=== PATIENT | female | born 1940 | race Hispanic/Latino ===

== ENCOUNTER 2019-11-07 01:36 | Emergency (ER) | payer MEDICARE | END 2019-11-07 01:41 | disposition left against medical advice (07) | LOC: ED 01:36 | DX: R06.2 Wheezing (principal); Z53.21 Procedure and treatment not carried out due to patient leaving prior to being seen by health care provider ==

== ENCOUNTER 2019-11-21 12:32 | Observation (INO) | payer MEDICARE ==
[2019-11-21] MEDS ORDERED: ONDANSETRON 4 MG/2 ML INJ IV ONE (12:44)
[2019-11-21] MEDS ORDERED: ONDANSETRON 4 MG/2 ML INJ ONE (12:44)
[2019-11-21] MEDS ORDERED: IPRATROPIUM 0.02% NEBU 2.5 ML IH ONE (12:54)
[2019-11-21] MEDS ORDERED: ALBUTEROL 2.5 MG/3 ML NEBU IH ONE (12:54)
[2019-11-21] MEDS ORDERED: predniSONE 20 MG TAB PO ONE (12:54)
[2019-11-21] MEDS ORDERED: LIDOCAINE-MPF (1%) 10 MG/1 ML VIAL 5 ML INFILTRATI ONE (12:56)
[2019-11-21 14:12] LABS: Hemoglobin 10.8 gm/dl (10.1-14.3); Mean Corpuscular HGB Conc 33 % (30-34); Mean Corpuscular Volume 87 fl (79-97); Platelet Count 176 K/mm3 (140-440); Red Blood Count 3.79 M/mm3 (3.65-5.03); Red Cell Distribution Width 16.6 % (13.2-15.2)
[2019-11-21 14:21] LABS: INR 3.59 (0.87-1.13); Partial Thromboplastin Time 40.9 Sec. (24.2-36.6)
[2019-11-21 14:21] LABS: ABG Base Excess 0.9 mmol/L (-2.0-3.0); ABG HCO3 22.6 mmol/L (20.0-26.0); ABG PCO2 33.1 mm Hg; ABG PH 7.452 pH Units (7.350-7.450); ABG PO2 50.3 mm Hg (80.0-90.0)
[2019-11-21 14:22] LABS: ABG Oxygen Saturation 86.9 % (95.0-99.0)
[2019-11-21 14:24] LABS: ABG Methemoglobin 0.6 % (0.0-1.5)
[2019-11-21 14:39] LABS: BUN/Creatinine Ratio 33; Blood Urea Nitrogen 36 mg/dL (7-17); Calcium 9.1 mg/dL (8.4-10.2); Hemolysis Index 21
[2019-11-21 15:35] LABS: Basophils % (Manual) 0 % (0.0-1.8); Eosinophils % (Manual) 0 % (0.0-4.3); Platelet Estimate Consistent w Auto; Tear Drop Cells Few; Total Cells Counted 100
--- NOTE | 2019-11-21 15:51 | XRay Report ---
CHEST 1 VIEW 1450 INDICATION / CLINICAL INFORMATION: cough, sob. COMPARISON: 03/13/2009 FINDINGS: SUPPORT DEVICES: None HEART / MEDIASTINUM: Cardiac surgical drain are again seen. Heart size appears within normal limits. LUNGS / PLEURA: Mild scarring is seen in the left base. Mild basilar atelectatic changes are noted. P ulmonary vascularity appears within normal limits. No areas of consolidation are seen. No pneumothora x. ADDITIONAL FINDINGS: No significant additional findings. IMPRESSION: No significant acute abnormality Signer Name: Ishan Hernandez MD Signed: 11/21/2019 3:46 PM Workstation Name: [id number]
--- NOTE | 2019-11-21 15:56 | Vascular Lab Report ---
DUPLEX VENOUS DOPPLER RIGHT LOWER EXTREMITY INDICATION: right leg swelling, hx cancer TECHNIQUE: Duplex doppler imaging was performed through the veins of the right lower extremity using venous compression and other maneuvers. COMPARISON: None available. FINDINGS: Common Femoral vein: Negative. Superficial Femoral vein: Negative. Popliteal vein: Negative. Calf veins: Negative. Additional findings: None. IMPRESSION: No evidence of deep venous thrombosis. Signer Name: Ishan Hernandez MD Signed: 11/21/2019 3:52 PM Workstation Name: [id number]
[2019-11-21] MEDS ORDERED: WARFARIN NO DOSE TODAY PO ONE (17:00)
--- NOTE | 2019-11-21 17:14 | Nuclear Medicine Report ---
Clinical data Suspect pulmonary embolic disease TECHNICAL DATA: Inhaled administration followed by immediate static images of chest in multiple projections coordin ed with breathing instructions. Followed by immediate static images of chest in multiple projections post I.V. injection. 11.1 millicuries of 133 Xenon is administered by inhalation. Pulmonary wash-in, equilibrium, and washout phases are performed. Then, 5.1 millicuries of 99m Tc MAA is administered intravenously. FINDINGS: Exam is compared to chest imaging study same day The ventilation scan is normal without evidence of delayed washout. The perfusion scan demonstrates h omogeneous uptake without evidence of segmental or subsegmental defects. IMPRESSION: Normal lung scan. Signer Name: Ilir Muñoz MD Signed: 11/21/2019 5:10 PM Workstation Name: [id number]
--- NOTE | 2019-11-21 17:31 | Emergency Department Report ---
- General Chief Complaint: Nausea/Vomiting/Diarrhea Stated Complaint: NAUSEA/VOMITING Time Seen by Provider: 11/21/19 12:52 Source: patient, family, EMS Mode of arrival: Stretcher Limitations: No Limitations - History of Present Illness Initial Comments: Patient is a 79-year-old female with a history of CLL who is had a cough for approximately 1 month. Patient is having some pain with breathing over the last day. Patient also states that she has had some worsening s hortness of breath. Patient has had a chronic cough for a month and has been on 2 courses of prednisone as well as an unknown antibiotic. Patient states the cough was just nagging however there is now shortness of breath with the cough. Patient today started having some nausea vomiting and right leg pain. Patient has had right leg pain in the past however she has not had pain in quite some time. Patient is on warfarin but her oncologist suggested that she stop her warfarin use for the last 2 days. Patient's cough is worse when lying flat. - Related Data Home Medications Medication Instructions Recorded Confirmed Last Taken Albuterol Sulfate [Proair 90 mcg IH BID PRN 11/21/19 11/21/19 Unknown Digihaler] Loratadine [Claritin RAPDIS] 10 mg PO QDAY 11/21/19 11/21/19 11/21/19 Lovastatin [Altoprev] 20 mg PO QHS 11/21/19 11/21/19 11/21/19 Metoprolol Tartrate [Lopressor] 50 mg PO BID 11/21/19 11/21/19 11/21/19 Olmesartan/Hydrochlorothiazide 1 each PO QDAY 11/21/19 11/21/19 11/21/19 [Olmesartan-Hctz 20-12.5 mg Tab] Pantoprazole Sodium [Protonix] 40 mg PO QDAY 11/21/19 11/21/19 11/21/19 Warfarin [Coumadin] 2.5 mg PO QDAY 11/21/19 11/21/19 11/21/19 Allergies Allergy/AdvReac Type Severity Reaction Status Date / Time No Known Allergies Allergy Unverified 07/23/14 10:25 ED Review of Systems ROS: Stated complaint: NAUSEA/VOMITING Other details as noted in HPI Comment: All other systems reviewed and negative ED Past Medical Hx - Past Medical History Previous Medical History?: Yes - Social History Smoking Status: Never Smoker - Medications Home Medications: Home Medications Medication Instructions Recorded Confirmed Last Taken Type Albuterol Sulfate [Proair 90 mcg IH BID PRN 11/21/19 11/21/19 Unknown History Digihaler] Loratadine [Claritin RAPDIS] 10 mg PO QDAY 11/21/19 11/21/19 11/21/19 History Lovastatin [Altoprev] 20 mg PO QHS 11/21/19 11/21/19 11/21/19 History Metoprolol Tartrate [Lopressor] 50 mg PO BID 11/21/19 11/21/19 11/21/19 History Olmesartan/Hydrochlorothiazide 1 each PO QDAY 11/21/19 11/21/19 11/21/19 History [Olmesartan-Hctz 20-12.5 mg Tab] Pantoprazole Sodium [Protonix] 40 mg PO QDAY 11/21/19 11/21/19 11/21/19 History Warfarin [Coumadin] 2.5 mg PO QDAY 11/21/19 11/21/19 11/21/19 History ED Physical Exam - General Limitations: No Limitations General appearance: alert, in no apparent distress - Head Head exam: Present: atraumatic, normocephalic - Eye Eye exam: Present: normal appearance, PERRL, EOMI - ENT ENT exam: Present: mucous membranes moist - Neck Neck exam: Present: normal inspection - Respiratory Respiratory exam: Present: respiratory distress, wheezes. Absent: normal lung sounds bilaterally, rales, rhonchi - Cardiovascular Cardiovascular Exam: Present: regular rate, normal rhythm, normal heart sounds. Absent: systolic murmur, diastolic murmur, rubs, gallop - GI/Abdominal GI/Abdominal exam: Present: soft, normal bowel sounds. Absent: distended, tenderness, guarding, rebound - Extremities Exam Extremities exam: Present: normal inspection, calf tenderness (right sided) - Back Exam Back exam: Present: normal inspection - Neurological Exam Neurological exam: Present: alert, oriented X3 - Psychiatric Psychiatric exam: Present: normal affect, normal mood - Skin Skin exam: Present: warm, dry, intact, normal color. Absent: rash ED Course Vital Signs 11/21/19 11/21/19 11/21/19 12:48 13:00 13:26 Temperature 100.9 F H Pulse Rate 99 H 92 H Pulse Rate [ 102 H Anterior Bilateral Throughout] Respiratory 27 H 26 H Rate Respiratory 25 H Rate [Anterior Bilateral Throughout] Blood Pressure 126/48 Blood Pressure 133/58 [Left] O2 Sat by Pulse 96 91 Oximetry 11/21/19 11/21/19 11/21/19 13:30 13:45 14:00 Temperature Pulse Rate 96 H 102 H 107 H Pulse Rate [ Anterior Bilateral Throughout] Respiratory 26 H 25 H 27 H Rate Respiratory Rate [Anterior Bilateral Throughout] Blood Pressure 121/43 113/51 117/51 Blood Pressure [Left] O2 Sat by Pulse 98 100 100 Oximetry 11/21/19 11/21/19 11/21/19 14:15 14:30 14:45 Temperature Pulse Rate 121 H 111 H 112 H Pulse Rate [ Anterior Bilateral Throughout] Respiratory 25 H 27 H 28 H Rate Respiratory Rate [Anterior Bilateral Throughout] Blood Pressure 111/44 108/43 102/43 Blood Pressure [Left] O2 Sat by Pulse 100 99 94 Oximetry 11/21/19 11/21/19 15:45 17:31 Temperature Pulse Rate 97 H 93 H Pulse Rate [ Anterior Bilateral Throughout] Respiratory 29 H 16 Rate Respiratory Rate [Anterior Bilateral Throughout] Blood Pressure 103/39 Blood Pressure 105/45 [Left] O2 Sat by Pulse 92 95 Oximetry ED Medical Decision Making - Lab Data Result diagrams: 11/21/19 13:35 11/21/19 13:35 Lab Results 11/21/19 11/21/19 11/21/19 Range/Units 13:29 13:35 13:35 WBC 38.6 H (4.5-11.0) K/mm3 RBC 3.79 (3.65-5.03) M/mm3 Hgb 10.8 (10.1-14.3) gm/dl Hct 33.0 (30.3-42.9) % MCV 87 (79-97) fl MCH 29 (28-32) pg MCHC 33 (30-34) % RDW 16.6 H (13.2-15.2) % Plt Count 176 (140-440) K/mm3 Lymph % (Auto) Manager Collection Lymph # Manager Collection Add Manual Diff Complete Total Counted 100 Seg Neutrophils % Manager Collection Seg Neuts % (Manual) 2.0 L (40.0-70.0) % Band Neutrophils % 0 % Lymphocytes % (Manual) 86.0 H (13.4-35.0) % Reactive Lymphs % (Man) 10.0 % Monocytes % (Manual) 2.0 (0.0-7.3) % Eosinophils % (Manual) 0 (0.0-4.3) % Basophils % (Manual) 0 (0.0-1.8) % Metamyelocytes % 0 % Myelocytes % 0 % Promyelocytes % 0 % Blast Cells % 0 % Nucleated RBC % Not Reportable Seg Neutrophils # Man 0.8 L (1.8-7.7) K/mm3 Band Neutrophils # 0.0 K/mm3 Lymphocytes # (Manual) 33.2 H (1.2-5.4) K/mm3 Abs React Lymphs (Man) 3.9 K/mm3 Monocytes # (Manual) 0.8 (0.0-0.8) K/mm3 Eosinophils # (Manual) 0.0 (0.0-0.4) K/mm3 Basophils # (Manual) 0.0 (0.0-0.1) K/mm3 Metamyelocytes # 0.0 K/mm3 Myelocytes # 0.0 K/mm3 Promyelocytes # 0.0 K/mm3 Blast Cells # 0.0 K/mm3 Hypersegmented Neuts Not Reportable Hyposegmented Neuts Not Reportable Hypogranular Neuts Not Reportable Smudge Cells Not Reportable Toxic Granulation Not Reportable Toxic Vacuolation Not Reportable Dohle Bodies Not Reportable Pelger-Huet Anomaly Not Reportable [place] Rods Not Reportable Platelet Estimate Consistent w auto Clumped Platelets Not Reportable Plt Clumps, EDTA Not Reportable Large Platelets Not Reportable Giant Platelets Not Reportable Platelet Satelliting Not Reportable Plt Morphology Comment Not Reportable RBC Morphology Not Reportable Dimorphic RBCs Not Reportable Polychromasia Not Reportable Hypochromasia Not Reportable Poikilocytosis Not Reportable Anisocytosis Not Reportable Microcytosis Not Reportable Macrocytosis Not Reportable Spherocytes Not Reportable Pappenheimer Bodies Not Reportable Sickle Cells Not Reportable Target Cells Not Reportable Tear Drop Cells Few Ovalocytes Not Reportable Helmet Cells Not Reportable Martinez-Rancho Mirage Bodies Not Reportable [place] Rings Not Reportable [place] Cells Not Reportable Bite Cells Not Reportable Crenated Cell Not Reportable Elliptocytes Few Acanthocytes (Spur) Not Reportable Rouleaux Not Reportable Hemoglobin C Crystals Not Reportable Schistocytes Not Reportable Malaria parasites Not Reportable [place] Bodies Not Reportable Hem Pathologist Commnt Sent to pathology PT (12.2-14.9) Sec. INR (0.87-1.13) APTT (24.2-36.6) Sec. ABG pH 7.452 H (7.350-7.450) pH Units ABG pCO2 33.1 mm Hg ABG pO2 50.3 L (80.0-90.0) mm Hg ABG HCO3 22.6 (20.0-26.0) mmol/L ABG O2 Saturation 86.9 L (95.0-99.0) % ABG Base Excess 0.9 (-2.0-3.0) mmol/L ABG Hemoglobin 10.6 L (12.0-16.0) gm/dl ABG Carboxyhemoglobin 1.4 (0.0-5.0) % ABG Methemoglobin 0.6 (0.0-1.5) % Oxyhemoglobin 85.1 L (95.0-99.0) % Sodium 142 (137-145) mmol/L Potassium 4.8 (3.6-5.0) mmol/L Chloride 105.3 (98-107) mmol/L Carbon Dioxide 21 L (22-30) mmol/L Anion Gap 21 mmol/L BUN 36 H (7-17) mg/dL Creatinine 1.1 (0.7-1.2) mg/dL Estimated GFR 48 ml/min BUN/Creatinine Ratio 33 % Glucose 119 H (65-100) mg/dL Calcium 9.1 (8.4-10.2) mg/dL Troponin T < 0.010 (0.00-0.029) ng/mL 11/21/19 Range/Units 13:35 WBC (4.5-11.0) K/mm3 RBC (3.65-5.03) M/mm3 Hgb (10.1-14.3) gm/dl Hct (30.3-42.9) % MCV (79-97) fl MCH (28-32) pg MCHC (30-34) % RDW (13.2-15.2) % Plt Count (140-440) K/mm3 Lymph % (Auto) Lymph # Add Manual Diff Total Counted Seg Neutrophils % Seg Neuts % (Manual) (40.0-70.0) % Band Neutrophils % % Lymphocytes % (Manual) (13.4-35.0) % Reactive Lymphs % (Man) % Monocytes % (Manual) (0.0-7.3) % Eosinophils % (Manual) (0.0-4.3) % Basophils % (Manual) (0.0-1.8) % Metamyelocytes % % Myelocytes % % Promyelocytes % % Blast Cells % % Nucleated RBC % Seg Neutrophils # Man (1.8-7.7) K/mm3 Band Neutrophils # K/mm3 Lymphocytes # (Manual) (1.2-5.4) K/mm3 Abs React Lymphs (Man) K/mm3 Monocytes # (Manual) (0.0-0.8) K/mm3 Eosinophils # (Manual) (0.0-0.4) K/mm3 Basophils # (Manual) (0.0-0.1) K/mm3 Metamyelocytes # K/mm3 Myelocytes # K/mm3 Promyelocytes # K/mm3 Blast Cells # K/mm3 Hypersegmented Neuts Hyposegmented Neuts Hypogranular Neuts Smudge Cells Toxic Granulation Toxic Vacuolation Dohle Bodies Pelger-Huet Anomaly [place] Rods Platelet Estimate Clumped Platelets Plt Clumps, EDTA Large Platelets Giant Platelets Platelet Satelliting Plt Morphology Comment RBC Morphology Dimorphic RBCs Polychromasia Hypochromasia Poikilocytosis Anisocytosis Microcytosis Macrocytosis Spherocytes Pappenheimer Bodies Sickle Cells Target Cells Tear Drop Cells Ovalocytes Helmet Cells Martinez-Rancho Mirage Bodies [place] Rings [place] Cells Bite Cells Crenated Cell Elliptocytes Acanthocytes (Spur) Rouleaux Hemoglobin C Crystals Schistocytes Malaria parasites Carrington Bodies Hem Pathologist Commnt PT 36.7 H (12.2-14.9) Sec. INR 3.59 H (0.87-1.13) APTT 40.9 H (24.2-36.6) Sec. ABG pH (7.350-7.450) pH Units ABG pCO2 mm Hg ABG pO2 (80.0-90.0) mm Hg ABG HCO3 (20.0-26.0) mmol/L ABG O2 Saturation (95.0-99.0) % ABG Base Excess (-2.0-3.0) mmol/L ABG Hemoglobin (12.0-16.0) gm/dl ABG Carboxyhemoglobin (0.0-5.0) % ABG Methemoglobin (0.0-1.5) % Oxyhemoglobin (95.0-99.0) % Sodium (137-145) mmol/L Potassium (3.6-5.0) mmol/L Chloride (98-107) mmol/L Carbon Dioxide (22-30) mmol/L Anion Gap mmol/L BUN (7-17) mg/dL Creatinine (0.7-1.2) mg/dL Estimated GFR ml/min BUN/Creatinine Ratio % Glucose (65-100) mg/dL Calcium (8.4-10.2) mg/dL Troponin T (0.00-0.029) ng/mL - EKG Data -: EKG Interpreted by [facility] EKG shows normal: sinus rhythm, axis, intervals, QRS complexes, ST-T waves Rate: tachycardia - EKG Data 11/21/19 17:47 RBBB - Radiology Data Ordering Physician: SABINE MCKEON MD Date of Service: 11/21/19 Procedure(s): XR chest 1V ap Accession Number(s): [id number] cc: SABINE MCKEON MD Fluoro Time In Minutes: CHEST 1 VIEW 1450 INDICATION / CLINICAL INFORMATION: cough, sob. COMPARISON: 03/13/2009 FINDINGS: SUPPORT DEVICES: None HEART / MEDIASTINUM: Cardiac surgical drain are again seen. Heart size appears within normal limits. LUNGS / PLEURA: Mild scarring is seen in the left base. Mild basilar atelectatic changes are noted. Pulmonary vascularity appears within normal limits. No areas of consolidation are seen. No pneumothorax. ADDITIONAL FINDINGS: No significant additional findings. IMPRESSION: No significant acute abnormality Signer Name: Ishan Hernandez MD Signed: 11/21/2019 3:46 PM Workstation Name: [id number] Ordering Physician: SABINE MCKEON MD Date of Service: 11/21/19 Procedure(s): NM lung scan perf/vent Accession Number(s): [id number] cc: SABINE MCKEON MD Clinical data Suspect pulmonary embolic disease TECHNICAL DATA: Inhaled administration followed by immediate static images of chest in multiple projections coordinated with breathing instructions. Followed by immediate static images of chest in multiple projections post I.V. injection. 11.1 millicuries of 133 Xenon is administered by inhalation. Pulmonary wash-in, equilibrium, and washout phases are performed. Then, 5.1 millicuries of 99m Tc MAA is administered intravenously. FINDINGS: Exam is compared to chest imaging study same day The ventilation scan is normal without evidence of delayed washout. The perfusion scan demonstrates homogeneous uptake without evidence of segmental or subsegmental defects. IMPRESSION: Normal lung scan. Signer Name: Ilir Muñoz MD Signed: 11/21/2019 5:10 PM Workstation Name: [id number] DUPLEX VENOUS DOPPLER RIGHT LOWER EXTREMITY INDICATION: right leg swelling, hx cancer TECHNIQUE: Duplex doppler imaging was performed through the veins of the right lower extremity using venous compression and other maneuvers. COMPARISON: None available. FINDINGS: Common Femoral vein: Negative. Superficial Femoral vein: Negative. Popliteal vein: Negative. Calf veins: Negative. Additional findings: None. IMPRESSION: No evidence of deep venous thrombosis. Signer Name: Ishan Hernandez MD Signed: 11/21/2019 3:52 PM Workstation Name: [id number] Transcribed By: SERGIO Dictated By: Ishan Hernandez MD Electronically Authenticated By: Ishan Hernandez MD Signed Date/Time: 11/21/19 3532 - Medical Decision Making Patient is 79-year-old female with past medical history of chronic lymphocytic leukemia who is presenting with a cough for 1 month however she has had increased shortness of breath and pain with her cough for the last day. Chest x-ray is negative for obvious infiltrate. Patient has leg pain and there is great concern for pulmonary embolus. VQ scan is within normal limits. Ultrasound of the patient's lower extremity shows no acute DVT. Patient is Coumadin level is supratherapeutic. Patient did spike a fever here in emergency department. Patient is blood pressure dropped to 95 systolic. Patient's lungs did clear after neb treatment and her hypoxia did improve slightly to approximately 93%. Patient to be admitted to the hospitalist service. Antibiotics will be initiated. Although the x-ray did not show pneumonia with the fever being present in the increased shortness of breath and pain with br eathing and infiltrate may. After hydration. Blood cultures have been drawn as well. Patient's white count is at her baseline according to her daughter who is well versed in her medical care. Critical care attestation.: If time is entered above; I have spent that time in minutes in the direct care of this critically ill patient, excluding procedure time. ED Disposition Clinical Impression: Acute bronchitis, Acute respiratory distress, CLL (chronic lymphocytic leukemia) Disposition: OP ADMIT IP TO THIS HOSP Is pt being admited?: Yes Does the pt Need Aspirin: No Condition: Stable Instructions: Acute Bronchitis (ED) Referrals: PRIMARY CARE, [Primary Care Provider] - 3-5 Days Time of Disposition: 17:52
[2019-11-21] MEDS ORDERED: SODIUM CHLORIDE 0.9% 1000 ML IV SOLN IV ONE (17:38)
[2019-11-21] MEDS ORDERED: ACETAMINOPHEN 325 MG TAB PO ONE (17:51)
--- NOTE | 2019-11-21 18:01 | History and Physical Report ---
History of Present Illness Chief complaint: I just cannot stop coughing History of present illness: 79 YO Female with CLL presents to ED for evaluation. Pt states that she has experienced nonproductive cough over the past 1 month with persistent symptoms over the same timeframe. With worsening symptoms over the past 2 days. Patient states that she now experiences chest wall discomfort associated with the coughing episodes. Patient also acknowledges progressive weakness due to lack of oral intake. Patient is currently bedbound and requires 4/6 assistance with activities of daily living. EMS notified and upon arrival the patient was found to be in distress. The patient was transported to [facility] for further evaluation and care. Patient seen and evaluated in the emergency department. Lab and imaging studies reviewed. The patient was found to have symptoms consistent with acute bronchitis. Patient placed in observation status and admitted to [facility] unit for care and further evaluation due to increased risk of decompensation. Patient treated with empiric antibiotic therapy as well as IV steroid therapy. No prior admission for review. All listed medication reconciled at time of admission. Patient denies fever, chills, chest pain, palpitations, productive cough, hemoptysis, bright red blood per rectum, unilateral leg swelling, calf pain, prolonged travel/immobility immobility, individual/family history of DVT/PE/bleeding/blood clotting disorders. Past History Past Medical History: cancer Past Surgical History: No surgical history, Other (Reviewed) Social history: . denies: smoking, alcohol abuse, prescription drug abuse Family history: no significant family history, other (Reviewed) Medications and Allergies Allergies Allergy/AdvReac Type Severity Reaction Status Date / Time codeine Allergy Unknown Verified 11/21/19 18:38 Home Medications Medication Instructions Recorded Confirmed Last Taken Type Albuterol Sulfate [Proair 90 mcg IH BID PRN 11/21/19 11/21/19 Unknown History Digihaler] Loratadine [Claritin RAPDIS] 10 mg PO QDAY 11/21/19 11/21/19 11/21/19 History Lovastatin [Altoprev] 20 mg PO QHS 11/21/19 11/21/19 11/21/19 History Metoprolol Tartrate [Lopressor] 50 mg PO BID 11/21/19 11/21/19 11/21/19 History Olmesartan/Hydrochlorothiazide 1 each PO QDAY 02/22/20 02/22/20 02/22/20 History [Olmesartan-Hctz 20-12.5 mg Tab] Pantoprazole Sodium [Protonix] 40 mg PO QDAY 11/21/19 11/21/19 11/21/19 History Warfarin [Coumadin] 2.5 mg PO QDAY 11/21/19 11/21/19 11/21/19 History Active Meds: Active Medications Levofloxacin/Dextrose (Levaquin 500mg/100ml) 500 mg in 100 mls @ 100 mls/hr IV ONCE ONE; Protocol Stop: 11/21/19 18:38 Review of Systems Constitutional: weakness, no weight loss, no weight gain, no fever, no chills Ears, nose, mouth and throat: no ear pain, no ear discharge, no tinnitis, no decreased hearing, no nose pain, no nasal congestion Breasts: no change in shape, no swelling, no mass Cardiovascular: no chest pain, no orthopnea, no palpitations, no rapid/irregular heart beat, no edema Respiratory: cough, congestion Gastrointestinal: no nausea, no vomiting, no diarrhea, no constipation Genitourinary Female: no pelvic pain, no flank pain, no menorrhagia, no dysuria Rectal: no pain, no incontinence, no bleeding Integumentary: no rash, no redness Neurological: no transient paralysis, no weakness, no parathesias, no tingling, no seizures Psychiatric: no anxiety, no change in sleep habits, no sleep disturbances Endocrine: no cold intolerance, no polydipsia, no polyuria, no nocturia Hematologic/Lymphatic: no easy bruising, no easy bleeding Allergic/Immunologic: no urticaria Exam - Constitutional Vitals: Temp Pulse Resp BP Pulse Ox 100.7 F H 96 H 16 105/45 95 11/21/19 17:46 11/21/19 17:46 11/21/19 17:31 11/21/19 17:31 11/21/19 17:31 General appearance: Present: mild distress - EENT Eyes: Present: PERRL ENT: hearing intact, clear oral mucosa - Neck Neck: Present: supple, normal ROM - Respiratory Respiratory effort: normal Respiratory: bilateral: CTA - Cardiovascular Heart Sounds: Present: S1 & S2. Absent: rub, click - Extremities Extremities: pulses symmetrical, No edema Peripheral Pulses: within normal limits - Abdominal General gastrointestinal: Present: soft, non-tender, non-distended, normal bowel sounds Female genitourinary: Present: normal - Integumentary Integumentary: Present: clear, warm, dry - Musculoskeletal Musculoskeletal: gait normal, strength equal bilaterally - Psychiatric Psychiatric: appropriate mood/affect, intact judgment & insight - Neurologic Neurologic: CNII-XII intact, moves all extremities Results - Labs CBC & Chem 7: 11/21/19 13:35 11/21/19 13:35 Labs: Abnormal lab results 11/21/19 11/21/19 11/21/19 Range/Units 13:29 13:35 13:35 WBC 38.6 H (4.5-11.0) K/mm3 RDW 16.6 H (13.2-15.2) % Seg Neuts % (Manual) 2.0 L (40.0-70.0) % Lymphocytes % (Manual) 86.0 H (13.4-35.0) % Seg Neutrophils # Man 0.8 L (1.8-7.7) K/mm3 Lymphocytes # (Manual) 33.2 H (1.2-5.4) K/mm3 PT (12.2-14.9) Sec. INR (0.87-1.13) APTT (24.2-36.6) Sec. ABG pH 7.452 H (7.350-7.450) pH Units ABG pO2 50.3 L (80.0-90.0) mm Hg ABG O2 Saturation 86.9 L (95.0-99.0) % ABG Hemoglobin 10.6 L (12.0-16.0) gm/dl Oxyhemoglobin 85.1 L (95.0-99.0) % Carbon Dioxide 21 L (22-30) mmol/L BUN 36 H (7-17) mg/dL Glucose 119 H (65-100) mg/dL 11/21/19 Range/Units 13:35 WBC (4.5-11.0) K/mm3 RDW (13.2-15.2) % Seg Neuts % (Manual) (40.0-70.0) % Lymphocytes % (Manual) (13.4-35.0) % Seg Neutrophils # Man (1.8-7.7) K/mm3 Lymphocytes # (Manual) (1.2-5.4) K/mm3 PT 36.7 H (12.2-14.9) Sec. INR 3.59 H (0.87-1.13) APTT 40.9 H (24.2-36.6) Sec. ABG pH (7.350-7.450) pH Units ABG pO2 (80.0-90.0) mm Hg ABG O2 Saturation (95.0-99.0) % ABG Hemoglobin (12.0-16.0) gm/dl Oxyhemoglobin (95.0-99.0) % Carbon Dioxide (22-30) mmol/L BUN (7-17) mg/dL Glucose (65-100) mg/dL Assessment and Plan - Patient Problems (1) Acute bronchitis Current Visit: Yes Status: Acute Plan to address problem: Empiric IV antibiotic therapy, IV steroid therapy, nebulizer therapy, pulse oximetry, supportive care, Hydromet every 6 hours as needed for cough, chest x- ray, influenza a and B antigen. (2) CLL (chronic lymphocytic leukemia) Current Visit: Yes Status: Acute Plan to address problem: Supportive care, outpatient oncology follow-up. No evidence of blast crisis at this time. Continue anticoagulation as per oncology service. (3) Advance care planning Current Visit: Yes Status: Acute Plan to address problem: Patient is full code, disease education conducted, patient family as well as the patient acknowledged understanding and agreement with care plan, +30 minutes. (4) DVT prophylaxis Current Visit: Yes Status: Acute Plan to address problem: SCD to bilateral lower extremities while in bed. Continue prehospital anticoagulation.
[2019-11-21] MEDS ORDERED: ACETAMINOPHEN 325 MG TAB PO PRN (18:37)
[2019-11-21] MEDS ORDERED: ALBUTEROL 2.5 MG/3 ML NEBU IH PRN (18:37)
[2019-11-21] MEDS ORDERED: ONDANSETRON 4 MG/2 ML INJ IV PRN (18:37)
[2019-11-21] MEDS: CETIRIZINE 10 MG TAB PO SCH (21:24)
[2019-11-22] MEDS: HYDROcodone/HOMATROPINE 5-1.5MG /5 ML ORAL LIQD UNIT DOSE PO PRN ×2 (01:59→10:30)
[2019-11-22 05:09] LABS: Hematocrit 27.6 % (30.3-42.9); Mean Corpuscular HGB Conc 33 % (30-34); Mean Corpuscular Volume 86 fl (79-97); Platelet Count 131 K/mm3 (140-440); Red Blood Count 3.19 M/mm3 (3.65-5.03); Red Cell Distribution Width 16.1 % (13.2-15.2)
[2019-11-22 05:21] LABS: INR 4.72 (0.87-1.13)
[2019-11-22 06:00] LABS: Basophils % (Manual) 0 % (0.0-1.8); Eosinophils % (Manual) 0 % (0.0-4.3); Total Cells Counted 100
[2019-11-22 06:01] LABS: Platelet Estimate Consistent w Auto; Tear Drop Cells Rare
[2019-11-22] MEDS: PANTOPRAZOLE 40 MG TAB PO SCH ×2 (08:12→10:28)
[2019-11-22] MEDS ORDERED: NON-FORMULARY EACH (Olmesartan/Hydrochlorothiazide [Olmesartan-Hctz 20-12.5 Mg Tab] 1 EACH PO SCH (10:00)
[2019-11-22] MEDS ORDERED: hydroCHLOROthiazide 12.5 MG CAP PO SCH (10:00)
[2019-11-22] MEDS ORDERED: methylPREDNISolone Sod Succinate 40 MG/1 ML INJ IV SCH (10:00)
[2019-11-22] MEDS ORDERED: WARFARIN 5 MG TAB PO SCH (10:00)
[2019-11-22] MEDS ORDERED: LOSARTAN 50 MG TAB PO SCH (10:00)
[2019-11-22] MEDS: CETIRIZINE 10 MG TAB PO SCH (10:27)
--- NOTE | 2019-11-22 15:10 | Progress Note ---
Assessment and Plan / Acute bronchitis Empiric IV antibiotic therapy, nebulizer therapy, ordered influenza a and B antigen. /CLL (chronic lymphocytic leukemia) Supportive care, outpatient oncology follow-up. No evidence of blast crisis at this time. /Hypotension Hold BP meds, place iv fluid, /Physical debility, PT consulted /Supratherapeutic INR, hold coumadin /Advance care planning Patient is full code, disease education conducted, patient family as well as the patient acknowledged understanding and agreement with care plan / DVT prophylaxis SCD to bilateral lower extremities while in bed. Continue prehospital anticoagulation. Disposition: BP appears to be low, cont iv fluid, follow PT eval Subjective Date of service: 11/22/19 Interval history: Patient seen and examined BP appears to be low, appears very tired and low energy with minor physical activity patient states cough has improved but still has tightness Updated family at bedside Objective - Constitutional Vitals: Vital Signs - 12hr 11/22/19 11/22/19 11/22/19 07:19 08:25 09:00 Temperature 98.6 F Pulse Rate 91 H Respiratory 18 18 Rate Blood Pressure 104/44 Blood Pressure [Left] O2 Sat by Pulse 95 96 95 Oximetry 11/22/19 11/22/19 09:11 14:02 Temperature 98.5 F Pulse Rate 94 H Respiratory 18 Rate Blood Pressure Blood Pressure 86/40 [Left] O2 Sat by Pulse 95 Oximetry General appearance: Present: no acute distress, other (appears ill looking) - EENT Eyes: PERRL, EOM intact ENT: hearing intact, clear oral mucosa Ears: bilateral: normal - Neck Neck: supple, normal ROM - Respiratory Respiratory effort: normal Respiratory: bilateral: CTA - Cardiovascular Heart Sounds: Present: S1 & S2. Absent: gallop, rub Extremities: pulses intact, No edema, normal color, Full ROM - Gastrointestinal General gastrointestinal: Present: soft, non-tender, non-distended, normal bowel sounds - Integumentary Integumentary: clear, warm, dry - Musculoskeletal Musculoskeletal: generalized weakness - Neurologic Neurologic: moves all extremities - Psychiatric Psychiatric: memory intact, appropriate mood/affect, intact judgment & insight - Labs CBC & Chem 7: 11/22/19 04:54 11/22/19 04:54 Labs: Abnormal lab results 11/21/19 11/21/19 11/22/19 Range/Units 13:35 18:18 04:54 WBC 38.6 H 30.9 H (4.5-11.0) K/mm3 RBC 3.19 L (3.65-5.03) M/mm3 Hgb 9.0 L (10.1-14.3) gm/dl Hct 27.6 L (30.3-42.9) % RDW 16.6 H 16.1 H (13.2-15.2) % Plt Count 131 L (140-440) K/mm3 Seg Neuts % (Manual) 2.0 L 0 L (40.0-70.0) % Lymphocytes % (Manual) 86.0 H 98.0 H (13.4-35.0) % Seg Neutrophils # Man 0.8 L 0.0 L (1.8-7.7) K/mm3 Lymphocytes # (Manual) 33.2 H 30.3 H (1.2-5.4) K/mm3 PT (12.2-14.9) Sec. INR (0.87-1.13) Carbon Dioxide (22-30) mmol/L BUN (7-17) mg/dL Glucose (65-100) mg/dL Lactic Acid 3.70 H* (0.7-2.0) mmol/L Calcium (8.4-10.2) mg/dL 11/22/19 11/22/19 Range/Units 04:54 04:54 WBC (4.5-11.0) K/mm3 RBC (3.65-5.03) M/mm3 Hgb (10.1-14.3) gm/dl Hct (30.3-42.9) % RDW (13.2-15.2) % Plt Count (140-440) K/mm3 Seg Neuts % (Manual) (40.0-70.0) % Lymphocytes % (Manual) (13.4-35.0) % Seg Neutrophils # Man (1.8-7.7) K/mm3 Lymphocytes # (Manual) (1.2-5.4) K/mm3 PT 45.6 H (12.2-14.9) Sec. INR 4.72 H (0.87-1.13) Carbon Dioxide 21 L (22-30) mmol/L BUN 31 H (7-17) mg/dL Glucose 115 H (65-100) mg/dL Lactic Acid (0.7-2.0) mmol/L Calcium 8.0 L (8.4-10.2) mg/dL
[2019-11-22] MEDS: SODIUM CHLORIDE 0.9% 1000 ML 1,000 ML IV SCH (15:42)
[2019-11-23] MEDS: SODIUM CHLORIDE 0.9% 1000 ML 1,000 ML IV SCH (02:12)
[2019-11-23] MEDS: HYDROcodone/HOMATROPINE 5-1.5MG /5 ML ORAL LIQD UNIT DOSE PO PRN (08:48)
[2019-11-23] MEDS: CETIRIZINE 10 MG TAB PO SCH (10:09)
[2019-11-23] MEDS: PANTOPRAZOLE 40 MG TAB PO SCH (10:09)
--- NOTE | 2019-11-23 14:37 | Discharge Summary ---
Providers - Providers Date of Admission: 11/21/19 18:37 Date of discharge: 11/23/19 Attending physician: JENNIFER RIVERA 11/22/19 15:07 Physical Therapy Evaluation and Treat [CONS] Routine Comment: Reason For Exam: placement Primary care physician: DIRECTOR STATISTICAL PROGRAMMING Hospitalization Condition: Stable Pertinent studies: VQ scan LE doppler CXR Hospital course: Discharge diagnosis: / Acute bronchitis Placed on antibiotic therapy, nebulizer therapy, ordered influenza a and B antigen - negative /CLL (chronic lymphocytic leukemia) Supportive care, outpatient oncology follow-up. No evidence of blast crisis at this time. /Hypotension, due to dehydration Held BP meds, place iv fluid, /Physical debility, patient did walk 20feet with RN w/o desaturating /Supratherapeutic INR, resolved, held coumadin /ST, due to breathing treatment /GERD, cont PPI /Advance care planning Patient is full code, disease education conducted, patient family as well as the patient acknowledged understanding and agreement with care plan / DVT prophylaxis SCD to bilateral lower extremities while in bed. Continue prehospital anticoagulation. Disposition: home with Disposition: [id number]/[place]-[id number] HOME UNDER HOME [facility] Time spent for discharge: 34 minutes Core Measure Documentation - Palliative Care Palliative Care/ Comfort Measures: Not Applicable - Core Measures Any of the following diagnoses?: none Exam - Constitutional Vitals: Temp Pulse Resp BP Pulse Ox 97.8 F 134 H 20 94/50 97 11/23/19 13:40 11/23/19 13:40 11/23/19 13:40 11/23/19 13:40 11/23/19 13:40 Plan Activity: advance as tolerated, fall precautions Weight Bearing Status: Non-Weight Bearing Diet: low fat Special Instructions: record daily BP diary, physical therapy, home health RN Durable Medical Equipment Needed Upon Discharge: Walker-Rolling Follow up with: PRIMARY CAREMD [Primary Care Provider] - 3-5 Days Forms: Warfarin Discharge Instruction Prescriptions: levoFLOXacin [Levaquin] 250 mg PO QDAY #5 tablet Pantoprazole [Protonix] 40 mg PO QDAY #30 tablet
[2019-11-23 15:44] VITALS: BP 97/47
== END 2019-11-23 17:25 | disposition home health service (06) ==
LOC: ED 12:32 → 2B-ACE 18:37
PROVIDERS: ADMIT Internal Medicine; ATTEND Internal Medicine
DX: J20.9 Acute bronchitis, unspecified (principal); C91.10 Chronic lymphocytic leukemia of B-cell type not having achieved remission; R11.2 Nausea with vomiting, unspecified; R19.7 Diarrhea, unspecified; R06.03 Acute respiratory distress; I95.9 Hypotension, unspecified; K21.9 Gastro-esophageal reflux disease without esophagitis; Z79.01 Long term (current) use of anticoagulants; Z79.899 Other long term (current) drug therapy; Z88.5 Allergy status to narcotic agent
CPT/HCPCS: 36415; 71045; 78582; 80048; 82140; 82803; 84484; 85007; 85025; 85610; 85730; 87040; 93005; 93010; 93971; 94640; 94644; 94760; 96361; 96365; 96366; 96375; 96376; 97162; 99285; A9270; A9540; A9558; G0378; J1956; J2405; J2920; J7030; J7512